=== PATIENT | female | born 1935 | race Caucasian/White ===

== ENCOUNTER 2021-05-25 19:34 | Emergency (ER) | payer MEDICARE, SELFPAY ==
--- NOTE | ~2021-05-25 | XR_ITS ---
EXAMINATION: XR knee RT 3V DATE: 05/25/2021 19:58 INDICATION: Posterior right knee pain post fall TECHNIQUE: Anteroposterior, oblique and crosstable lateral views of the right knee were obtained COMPARISON: None. FINDINGS: Alignment is normal. No fracture. Joint spaces appear normal on nonweightbearing imaging. 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 No joint effusion/layering lipohemarthrosis. So ft tissues are unremarkable. IMPRESSION: 1. No right knee joint effusion or acute osseous abnormality. Reviewed, dictated and finalized at location A. [facility]
[2021-05-25 19:34] VITALS: BP 155/102; PULSE 80; RESP 16; TEMP 36.4; O2SAT 99
--- NOTE | 2021-05-25 20:29 | PC.NURSE ---
Kallie [phone]
[2021-05-25] MEDS: ACETAMINOPHEN 500 MG TABLET 1000 MG PO (20:35)
--- NOTE | 2021-05-25 21:30 | ED.LOWEXIN ---
HPI - Extremity Injury (Lower) General Chief Complaint: Extremity Injury, Lower Stated Complaint: right knee pain since twisting it this am Time Seen by Provider: 05/25/21 19:46 Source: RN notes reviewed History of Present Illness HPI Narrative: Patient presents emergency department from home for right knee pain. Patient states that she was getting out of a car this morning when she twisted her right knee states that since that time she had increasing pain in the right knee and is now unable to bear weight on it she denies falling or striking the knee she denies any other pain the pain is located over the bilateral lateral knee and posterior knee and is worse with bending the knee took ibuprofen approximately noon today but denies any medication since that time denies any numbness or tingling in the extremity Related Data Home Medications Medication Instructions Recorded Confirmed esomeprazole magnesium [Nexium] 40 mg PO DAILY 05/25/21 olmesartan-hydrochlorothiazide 1 tablet PO DAILY 05/25/21 [Benicar HCT] rosuvastatin [Crestor] 10 mg PO DAILY 05/25/21 Allergies Allergy/AdvReac Type Severity Reaction Status Date / Time meperidine [From Demerol] Allergy Unknown Verified 05/25/21 19:39 naproxen Allergy Gastrointestinal Verified 05/25/21 19:39 Upset Review of Systems Review of Systems: Gen.: Denies fevers or chills Musculoskeletal: See HPI Neuro: Denies numbness, tingling, weakness Skin: Denies rash Endo: Denies DM PMFSH Past Medical History Medical History (Updated 05/25/21 @ 21:32 by Alec Mancilla DO) Hypertension Social History Social History (Updated 05/25/21 @ 21:31 by Alec Mancilla DO) Smoking status: Never smoker Exam Narrative: APPEARANCE: No acute distress, nontoxic, resting in bed Eyes: EOMI HEENT: Normocephalic, atraumatic, RESPIRATORY: No respiratory distress MUSCULOSKELETAl: Tender palpation in the right medial lateral and posterior knee pain with flexion of the greater than 45 degrees, no tenderness of the right ankle or hip dorsalis pedis pulse 2+ neurovascular intact NEURO: Awake and alert. Following commands, speech normal, no focal deficits SKIN:: Warm, dry. Normal Color no rash or lesions Course Course Emergency Course: Patient able to get up and ambulate in ED with walker and knee immobilizer Discussed with patient results of workup and diagnosis. Discussed need for follow-up with primary care, proper use of medication, and reasons to return to the emergency department. Patient understands and agrees to current treatment plan Vital Signs Vital signs: Vital Signs Temperature 97.6 F 05/25/21 19:34 Pulse Rate 80 05/25/21 19:34 Respiratory Rate 16 05/25/21 19:34 Blood Pressure 155/102 H 05/25/21 19:34 Pulse Oximetry 99 05/25/21 19:34 Temperature 97.6 F 05/25/21 19:34 Pulse Rate 80 05/25/21 19:34 Respiratory Rate 16 05/25/21 19:34 Blood Pressure 155/102 H 05/25/21 19:34 Pulse Oximetry 99 05/25/21 19:34 MDM - Extremity Injury (Lower) Imaging Data Radiologist's impression: ITS Impressions Knee X-Ray 05/25/21 20:08 IMPRESSION: 1. No right knee joint effusion or acute osseous abnormality. Discharge Plan Discharge Clinical Impression: Right knee sprain Patient Disposition: Home, Self-Care Condition: Stable Instructions: Antibiotic Form, Knee Sprain (ED) Additional Instructions: Return for increasing pain numbness or tingling in the extremities or any other symptoms of concern. Obtain a walker from your local drugstore and use it at home Prescriptions: No Action esomeprazole magnesium [Nexium] 40 mg Capsule,Delayed Release(Dr/Ec) 40 mg PO DAILY RF: 0 olmesartan-hydrochlorothiazide [Benicar HCT] 20-12.5 mg Tablet 1 tablet PO DAILY RF: 0 rosuvastatin [Crestor] 20 mg Tablet 10 mg PO DAILY RF: 0 Follow-up/Referrals: BNENIE,UZMA AVILA [Primary Care Provider] - 2 Days T
== END 2021-05-25 21:54 | disposition home or self-care (01) ==
PROVIDERS: Emergency Provider Emergency Medicine; PCP Nurse Practitioner Family
DX: S83.91XA Sprain of unspecified site of right knee, initial encounter (principal); I10 Essential (primary) hypertension; X50.9XXA Other and unspecified overexertion or strenuous movements or postures, initial encounter
CPT/HCPCS: 73562; 99283; A9270